=== PATIENT | female | born 1990 | race Caucasian/White ===

== ENCOUNTER 2025-06-01 16:02 | Inpatient (IN) | payer OTHER ==
[~2025-06-01] VITALS: Ht 165.1 cm; Wt 81.8 kg
[2025-06-01] MEDS: ONDANSETRON HCL 4 MG/2 ML VIAL IVP ONE (16:44)
[2025-06-01] MEDS: SODIUM CHLORIDE 0.9% 1,000 ML IV ONE (16:44)
[2025-06-01 16:45] LABS: PLATELET COUNT (AUTO) 202 K/uL (150-450); RED BLOOD CELL COUNT(AUTO) 4.76 MIL/uL (4.00-5.20); RED CELL DISTRIBUTION WIDTH 14.9 % (11.5-14.5); WHITE BLOOD COUNT (AUTO) 7.0 K/uL (4.5-11.0)
[2025-06-01] MEDS ORDERED: MAGNESIUM HYDROXIDE SUSPENSION 30 ML UDCUP PO PRN (16:45)
[2025-06-01 16:52] LABS: PH,URINE DRUG SCREEN 6.5 (5.0-8.0)
[2025-06-01 16:54] LABS: CALCIUM, TOTAL 9.0 mg/dL (8.8-10.5); CREATININE 0.58 mg/dL (0.60-1.30); GLOMERULAR FILTR. RATE CALC > 60 mL/min (>60); GLUCOSE,RANDOM 94 mg/dL (70-110); SODIUM SERUM 141 mmol/L (136-145); UREA NITROGEN, BLOOD 8 mg/dL (7-18)
[2025-06-01 16:58] LABS: AMPHET/METH SCREEN,URINE POSITIVE (NEGATIVE); BARBITURATE SCREEN, URINE NEGATIVE (NEGATIVE); CANNABINOID SCREEN,URINE NEGATIVE (NEGATIVE); COCAINE SCREEN,URINE NEGATIVE (NEGATIVE); METHADONE SCREEN, URINE NEGATIVE (NEGATIVE)
[2025-06-01 17:06] LABS: ALCOHOL, URINE DRUG SCREEN NEGATIVE (NEGATIVE)
[2025-06-01 18:34] VITALS: BP 104/57; PULSE 64; RESP 18; TEMP 98.2; O2SAT 99
[2025-06-01 19:40] VITALS: BP 117/75; PULSE 77; RESP 18; TEMP 98.4; O2SAT 99
[2025-06-02] MEDS: ZOLPIDEM TARTRATE 5 MG TABLET PO PRN (02:43)
[2025-06-02 03:51] VITALS: BP 116/82; PULSE 71; RESP 18; TEMP 98.2; O2SAT 99
[2025-06-02] MEDS: FAMOTIDINE 20 MG TABLET PO SCH (08:46)
[2025-06-02 09:10] VITALS: BP 132/84; PULSE 86; RESP 16; TEMP 98.6; O2SAT 97
[2025-06-02 11:59] LABS: APPEARANCE,URINE CLEAR (CLEAR); GLUCOSE, URINE (UA) NEGATIVE (NEGATIVE); LEUKOCYTE ESTERASE ,URINE NEGATIVE (NEGATIVE); NITRATE,URINE NEGATIVE (NEGATIVE); OCCULT BLOOD,URINE NEGATIVE (NEGATIVE); PH,URINE DRUG SCREEN 7.5 (5.0-8.0); SPECIFIC GRAVITIY, URINE 1.010 (1.003-1.030)
[2025-06-02 12:06] LABS: ALCOHOL, URINE DRUG SCREEN NEGATIVE (NEGATIVE); AMPHET/METH SCREEN,URINE POSITIVE (NEGATIVE); BARBITURATE SCREEN, URINE NEGATIVE (NEGATIVE); CANNABINOID SCREEN,URINE NEGATIVE (NEGATIVE); COCAINE SCREEN,URINE NEGATIVE (NEGATIVE); METHADONE SCREEN, URINE NEGATIVE (NEGATIVE)
[2025-06-02] MEDS: SODIUM CHLORIDE 0.9% 1,000 ML IV ONE (12:45)
[2025-06-02] MEDS: LORazepam 2 MG/ML VIAL IVP PRN (16:56)
[2025-06-02 20:18] VITALS: BP 136/85; PULSE 82; RESP 18; TEMP 98.1; O2SAT 98
[2025-06-02] MEDS: ACETAMINOPHEN 325 MG TABLET PO PRN (20:18)
[2025-06-03 04:00] VITALS: BP 108/71; PULSE 76; RESP 19; TEMP 98.4; O2SAT 98
[2025-06-03 07:36] VITALS: BP 131/89; PULSE 90; RESP 20; TEMP 98.4; O2SAT 98
[2025-06-03] MEDS: LORazepam 2 MG/ML VIAL IVP ONE (10:28)
[2025-06-03] MEDS: ONDANSETRON HCL 4 MG/2 ML VIAL IVP PRN (13:51)
[2025-06-03 21:15] VITALS: BP 132/87; PULSE 82; RESP 19; TEMP 97.8; O2SAT 97
[2025-06-03] MEDS: LORazepam 2 MG/ML VIAL IVP PRN (21:26)
[2025-06-04 08:06] VITALS: BP 126/84; PULSE 90; RESP 18; TEMP 99; O2SAT 98
[2025-06-04 16:00] VITALS: BP 127/90; PULSE 94; RESP 18; TEMP 98.8; O2SAT 99
[2025-06-05 08:00] VITALS: BP 140/94; PULSE 96; RESP 18; TEMP 98.7; O2SAT 100
== END 2025-06-05 09:40 | disposition left against medical advice (07) | DRG 894 ==
LOC: EMS 16:02 → EDH 16:37 → 6S 18:20
PROVIDERS: ADMIT Internal Medicine; ATTEND Internal Medicine
DX: F11.13 Opioid abuse with withdrawal (principal); F15.13 Other stimulant abuse with withdrawal; Z53.29 Procedure and treatment not carried out because of patient's decision for other reasons
CPT/HCPCS: 80048; 80307; 81003; 84703; 85025; 96361; 96374; 99285; J2060; J2405; J7030; 36415-L1; 36415-TC

== ENCOUNTER 2025-08-27 10:45 | Emergency (ER) | payer OTHER ==
[~2025-08-27] VITALS: Ht 167.6 cm; Wt 90.5 kg
[2025-08-27 11:03] VITALS: TEMP 98.4
[2025-08-27] MEDS ORDERED: BUSP15 PO (11:07)
[2025-08-27] MEDS ORDERED: PRAZ1 PO (11:07)
[2025-08-27] MEDS ORDERED: ONDA-104 PO (11:07)
[2025-08-27] MEDS ORDERED: BUPR1TAB46 SL (11:07)
[2025-08-27] MEDS ORDERED: FLUO-342 PO (11:07)
[2025-08-27 11:56] LABS: PLATELET COUNT (AUTO) 168 K/uL (150-450); RED BLOOD CELL COUNT(AUTO) 4.72 MIL/uL (4.00-5.20); RED CELL DISTRIBUTION WIDTH 15.0 % (11.5-14.5); WHITE BLOOD COUNT (AUTO) 4.9 K/uL (4.5-11.0)
[2025-08-27 12:04] LABS: CALCIUM, TOTAL 8.7 mg/dL (8.8-10.5); CREATININE 0.68 mg/dL (0.60-1.30); GLOMERULAR FILTR. RATE CALC > 60 mL/min (>60); GLUCOSE,RANDOM 95 mg/dL (70-110); SODIUM SERUM 141 mmol/L (136-145); UREA NITROGEN, BLOOD 10 mg/dL (7-18)
[2025-08-27 12:06] LABS: APPEARANCE,URINE CLEAR (CLEAR); GLUCOSE, URINE (UA) NEGATIVE (NEGATIVE); LEUKOCYTE ESTERASE ,URINE SMALL (NEGATIVE); NITRATE,URINE NEGATIVE (NEGATIVE); OCCULT BLOOD,URINE NEGATIVE (NEGATIVE); PH,URINE DRUG SCREEN 7.0 (5.0-8.0); SPECIFIC GRAVITIY, URINE 1.014 (1.003-1.030)
[2025-08-27 12:12] LABS: SQUAMOUS EPITHELIAL CELL,UR Many /LPF (None Seen)
[2025-08-27 12:27] LABS: ALCOHOL, URINE DRUG SCREEN NEGATIVE (NEGATIVE); AMPHET/METH SCREEN,URINE NEGATIVE (NEGATIVE); BARBITURATE SCREEN, URINE NEGATIVE (NEGATIVE); CANNABINOID SCREEN,URINE NEGATIVE (NEGATIVE); COCAINE SCREEN,URINE NEGATIVE (NEGATIVE); METHADONE SCREEN, URINE NEGATIVE (NEGATIVE)
[2025-08-27 13:29] VITALS: BP 111/62; PULSE 64; RESP 16; O2SAT 98
== END 2025-08-27 13:31 ==
LOC: EMS 10:52
DX: S00.03XA Contusion of scalp, initial encounter (principal); R55 Syncope and collapse; R42 Dizziness and giddiness; F11.90 Opioid use, unspecified, uncomplicated; F15.90 Other stimulant use, unspecified, uncomplicated; Z79.899 Other long term (current) drug therapy; W19.XXXA Unspecified fall, initial encounter; Y93.89 Activity, other specified; Y92.89 Other specified places as the place of occurrence of the external cause; Y99.8 Other external cause status
CPT/HCPCS: 70450; 80048; 80307; 81001; 84703; 85025; 93005; 99284